=== PATIENT | female | born 1975 | race Caucasian/White ===

== ENCOUNTER 2016-06-18 06:46 | Inpatient (IN) | payer BC ==
[2016-06-18] MEDS ORDERED: Sodium Chloride 0.9% 10 ML Syringe FLUSH PRN (08:13)
[2016-06-18] MEDS ORDERED: Nalbuphine 20 MG/1 ML Amp IVPUSH PRN (08:13)
[2016-06-18] MEDS ORDERED: Lidocaine 1% 50 ML MDV INJECT ONE (08:13)
[2016-06-18] MEDS ORDERED: Ondansetron 4 MG/2 ML SDV IVPUSH PRN (08:15)
[2016-06-18] MEDS ORDERED: ePHEDrine 50 MG/ML SDV IVPUSH PRN (08:15)
[2016-06-18] MEDS ORDERED: Oxytocin/Lactated Ringers 10 UNIT/1,000 ML BAG IV SCH (08:15)
--- NOTE | 2016-06-18 08:18 | PCM.PREANE ---
Preanesthetic Assessment - ANESTHESIA/TRANSFUSION/FAMILY HX Anesthesia/Transfusion History: No Prior Transfusion(s), Prior Anesthesia Type of Anesthesia Reaction: Denies: Allergy, Anesthesia Awareness, Excessive Somnolence, Excessive Nausea/Vomiting, Excessive Itching, Excessive Shivering, Malignant Hyperthermia, Malignant Hyperthermia, Family History, Pseudocholinesterase Deficiency, Pseudocholinesterase Deficiency, Family History of, Urinary Retention, Unknown, Other (see below) Family History of Anesthesia Reaction: No Intubation History: Unknown - REVIEW OF SYSTEMS Constitutional: Reports: no symptoms 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.) Respiratory: Reports: no symptoms (childhood asthma/ has not used inhaler in years.) Cardiovascular: Reports: no symptoms GI: Reports: no symptoms (GERD with ) Other: Reports: sinus problem (sinus surgery as a child.), depression, anxiety - PHYSICAL ASSESSMENT HR: 89 O2 Sat by Pulse Oximetry: 99 RR: 18 BP: 122/83 Temp: 37.2 C Height: 1.65 m Weight: 75.296 kg NPO Status Date: 06/17/16 NPO Status Time: 20:00 ASA Class: 2 Mental Status: alert & oriented x3 Airway Class: Mallampati = 2 Dentition: Reports: normal dentition, caries Thyro-Mental Finger Breadths: 3 Mouth Opening Finger Breadths: 2 ROM/Head Extension: full Respiratory Status: lungs clear to auscultation bilaterally Cardiovascular Status: regular rate & rhythm, normal S1, S2, no murmur, blood pressure WNL - ALLERGIES Allergies/Adverse Reactions: Allergies Allergy/AdvReac Type Severity Reaction Status Date / Time cefprozil [From Cefzil] Allergy Hives Verified 06/18/16 08:20 Penicillins Allergy Hives Verified 06/18/16 08:20 - ANESTHESIA PLAN Preop Beta Ninoska: No Anesthesia Type Planned: epidural - ACKNOWLEDGEMENTS Pt an appropriate candidate for the planned anesthesia: Yes Alternatives and risks of anesthesia discussed w pt/guardian: Yes Pt/Guardian understands and agree with anesthesia plan: Yes
[2016-06-18] MEDS: Lactated Ringers 1,000 ML IV SCH ×5 (08:30→20:41)
--- NOTE | 2016-06-18 08:33 | PCM.LDHP ---
L&D History of Present Illness - General Date of Service: 06/18/16 Admit Problem/Dx: Patient Status Order with Admit Dx/Problem 06/18/16 08:16 Patient Status [ADT] Routine Patient Status: Refer to Observation Admission Diagnosis/Problem: Normal labor Reason for Admit: active labor Nurse Unit Type: Labor and Delivery Admitting Physician: Svitlana Paredes Attending Physician: Svitlana Paredes Admission Diagnosis/Problem Admission Diagnosis/Problem Normal labor Source of Information: Patient History Limitations: Reports: No limitations - History of Present Illness Introduction:: 40 year old at 39w2d here with SROM of clear fluid at 0500. Contractions started at 7am when arrived to hospital. Timing/Duration: Reports: seconds: - Related Data Allergies/Adverse Reactions: Allergies Allergy/AdvReac Type Severity Reaction Status Date / Time cefprozil [From Cefzil] Allergy Hives Verified 06/18/16 08:20 Penicillins Allergy Hives Verified 06/18/16 08:20 H&P Review of Systems - Review of Systems: Review Of Systems: See Below General: Reports: no symptoms HEENT: Reports: no symptoms Pulmonary: Reports: no symptoms Cardiovascular: Reports: no symptoms Gastrointestinal: Reports: No symptoms Genitourinary: Reports: no symptoms Musculoskeletal: Reports: no symptoms Skin: Reports: no symptoms Psychiatric: Reports: no symptoms Neurological: Reports: no symptoms Hematologic/Lymphatic: Reports: no symptoms Immunologic: Reports: no symptoms L&D Exam - Exam Exam: See Below - Vital Signs Vital Signs: Last Vital Signs Temp 37.2 C 06/18/16 08:18 Pulse 89 06/18/16 08:18 Resp 18 06/18/16 08:18 BP 122/83 06/18/16 08:18 Pulse Ox 99 06/18/16 08:18 Weight: 75.296 kg - OB Specific Contraction Intensity: Mild to Moderate Heart Rate (FHR) Variability: Moderate (6-25 bmp) Presentation: Vertex - Edwards Score Edwards Score Cervix Position: Midposition Edwards Score Consistency: Medium Edwards Score Effacement: >80% Edwards Score Dilation: 3-4 cm Edwards Score 's Station: -1 ,0 Edwards Score Total: 9 - Exam General: alert HEENT: Mucosa moist & pink, Nares patent Neck: supple, trachea midline Lungs: Clear to auscultation Abdomen: normal bowel sounds, soft Genitourinary: Normal external exam Back Exam: normal inspection, full range of motion Neurological: cranial nerves intact, reflexes equal bilateral Psychiatric: alert, normal affect, normal mood - Patient Data Lab Results last 24 hrs: Laboratory Results - last 24 hr 06/18/16 Range/Units 07:45 WBC 10.55 H (3.98-10.04) K/mm3 RBC 4.49 (3.98-5.22) M/mm3 Hgb 14.5 (11.2-15.7) gm/L Hct 40.7 (34.1-44.9) % MCV 90.6 (79.4-94.8) fl MCH 32.3 H (25.6-32.2) pg MCHC 35.6 H (32.2-35.5) g/dl RDW Std Deviation 42.7 (36.4-46.3) fL Plt Count 195 (182-369) K/mm3 MPV 9.3 L (9.4-12.3) fl Neut % (Auto) 76.0 H (34.0-71.1) % Lymph % (Auto) 14.1 L (19.3-51.7) % [place] % (Auto) 7.9 (4.7-12.5) % Eos % (Auto) 1.3 (0.7-5.8) Baso % (Auto) 0.2 (0.1-1.2) % Neut # 8.02 H (1.56-6.13) K/mm3 Lymph # 1.49 (1.18-3.74) K/mm3 [place] # 0.83 H (0.24-0.36) K/mm3 Eos # 0.14 (0.04-0.36) K/mm3 Baso # 0.02 (0.01-0.08) K/mm3 Result Diagrams: 06/18/16 07:45 Problem List Initiated/Reviewed/Updated: Yes Orders Last 24hrs: Active Orders 24 hr Category Date Time Status Patient Status [ADT] Routine ADT 06/18/16 08:16 Active Activity as Tolerated [RC] PFP Care 06/18/16 08:15 Active Communication Order [RC] ASDIRECTED Care 06/18/16 08:15 Active Heart Tones [RC] ASDIRECTED Care 06/18/16 08:16 Active Notify Provider [RC] ASDIRECTED Care 06/18/16 08:15 Active Notify Provider [RC] PFP Care 06/18/16 08:15 Active Notify Provider [RC] PRN Care 06/18/16 08:15 Active Oxygen Therapy [RC] ASDIRECTED Care 06/18/16 08:15 Active Peripheral IV Care [RC] . DIRECTED Care 06/18/16 08:16 Active Pulse Oximetry [RC] ASDIRECTED Care 06/18/16 08:15 Active Vital Signs [RC] PER UNIT ROUTINE Care 06/18/16 08:15 Active Clear Liquid Diet [DIET] Diet 06/18/16 Breakfast Active Bupivacaine/fentaNYL/NS [fentaNYL/Bupivacaine/NS 2 MCG- Med 06/18/16 08:15 Active 0.125% 100 ML] 100 ml EPIDUR ASDIRECTED Lactated Ringers [Ringers, Lactated] 1,000 ml Med 06/18/16 08:15 Active IV ASDIRECTED Nalbuphine [Nubain] Med 06/18/16 08:13 Active 10 mg IVPUSH Q2H PRN Ondansetron [Zofran] Med 06/18/16 08:15 Active 4 mg IVPUSH ONETIME PRN Oxytocin/Lactated Ringers [Pitocin in LR 10 Units/1,000 Med 06/18/16 08:15 Active ML] 10 unit in 1,000 ml IV ASDIRECTED Sodium Chloride 0.9% [Saline Flush] Med 06/18/16 08:13 Active 10 ml FLUSH ASDIRECTED PRN ePHEDrine [ePHEDrine Sulfate] Med 06/18/16 08:15 Ordered 5 mg IVPUSH ASDIRECTED PRN fentaNYL [Sublimaze] Med 06/18/16 08:15 Active 100 mcg EPIDUR Q3H PRN Electronic Heart Tones Ext w TOCO [WOMSER] Oth 06/18/16 08:15 Ordered Routine Electronic Heart Tones Internal [WOMSER] Per Unit Oth 06/18/16 08:15 Ordered Routine Peripheral IV Insertion Adult [OM.PC] Routine Oth 06/18/16 08:15 Ordered Resuscitation Status Routine Resus Stat 06/18/16 08:13 Ordered Medication Orders Ephedrine Sulfate (Ephedrine Sulfate) 5 mg IVPUSH ASDIRECTED PRN PRN Reason: Hypotension Fentanyl (Sublimaze) 100 mcg EPIDUR Q3H PRN PRN Reason: Pain Fentanyl/Bupivacaine HCl (Fentanyl/Bupivacaine/Ns 2 Mcg-0.125% 100 Ml) 100 ml EPIDUR ASDIRECTED STEPHANIE Lactated Ringer's (Ringers, Lactated) 1,000 mls @ 100 mls/hr IV ASDIRECTED STEPHANIE Oxytocin/Lactated Ringer's (Pitocin In Lr 10 Units/1,000 Ml) 10 unit in 1,000 mls @ 500 mls/hr IV ASDIRECTED STEPHANIE Nalbuphine HCl (Nubain) 10 mg IVPUSH Q2H PRN PRN Reason: Pain (moderate 4-6) Ondansetron HCl (Zofran) 4 mg IVPUSH ONETIME PRN PRN Reason: Nausea/Vomiting Sodium Chloride (Saline Flush) 10 ml FLUSH ASDIRECTED PRN PRN Reason: Keep Vein Open Assessment/Plan Comment:: Term labor. More uncomfortable. Desires epidural. Anticipate .
[2016-06-18] MEDS: Bupivacaine/fentaNYL/NS 100 ML Bag EPIDUR SCH ×2 (08:40→17:11)
[2016-06-18] MEDS: fentaNYL 100 MCG/2 ML SDV EPIDUR PRN (08:41)
[2016-06-18] MEDS ORDERED: Citric Acid/Sodium Citrate Solution 30 ML Cup ONE (23:38)
[2016-06-18] MEDS ORDERED: Metoclopramide 10 MG/2 ML SDV ONE (23:39)
[2016-06-18] MEDS ORDERED: Bupivacaine 0.5% 30 ML SDV ONE (23:44)
[2016-06-18] MEDS ORDERED: Clindamycin Phosphate 900 MG in Sodium Chloride 0.9% 100 ML IV ONE (23:57)
[2016-06-19] MEDS ORDERED: Gentamicin 40 MG/ML 2 ML Vial ONE (00:02)
[2016-06-19] MEDS ORDERED: Clindamycin Phosphate 900 MG/6 ML AdvVial ONE (00:02)
[2016-06-19] MEDS ORDERED: Sodium Chloride 0.9% 100 ML ONE (00:03)
[2016-06-19] MEDS ORDERED: Citric Acid/Sodium Citrate Solution 30 ML Cup PO ONE (00:08)
[2016-06-19] MEDS ORDERED: Metoclopramide 10 MG/2 ML SDV IVPUSH ONE (00:08)
[2016-06-19] MEDS ORDERED: Sodium Chloride 0.9% 10 ML Syringe FLUSH PRN (00:08)
[2016-06-19] MEDS ORDERED: Lactated Ringers 1,000 ML IV SCH (00:15)
[2016-06-19] MEDS ORDERED: Ondansetron 4 MG/2 ML SDV ONE (00:35)
[2016-06-19] MEDS ORDERED: Oxytocin 10 Units/1 ML SDV ONE (00:35)
[2016-06-19] MEDS ORDERED: Ketorolac 30 MG/ML SDV ONE (00:35)
[2016-06-19] MEDS ORDERED: Lactated Ringers 2,000 ML ONE (00:35)
[2016-06-19] MEDS ORDERED: Lidocaine 2% with EPINEPHrine 1:200,000 20 ML SDV ONE (00:35)
[2016-06-19] MEDS ORDERED: Morphine PF 10 MG/10 ML SDV ONE (00:36)
[2016-06-19] MEDS ORDERED: fentaNYL 100 MCG/2 ML SDV IVPUSH PRN (00:48)
[2016-06-19] MEDS ORDERED: Ondansetron 4 MG/2 ML SDV IVPUSH PRN ×2 (00:48→10:20)
[2016-06-19] MEDS ORDERED: HYDROmorphone 0.5 MG/0.5 ML Syringe IVPUSH PRN (00:48)
[2016-06-19] MEDS ORDERED: diphenhydrAMINE 50 MG/ML SDV IVPUSH PRN ×2 (00:48→02:55)
[2016-06-19] MEDS ORDERED: ePHEDrine 50 MG/ML SDV IVPUSH PRN ×2 (00:48→02:55)
[2016-06-19] MEDS ORDERED: Meperidine PF 50 MG/ML Syringe ONE (00:52)
[2016-06-19] MEDS ORDERED: Bupivacaine 0.25% 10 ML SDV ONE (01:00)
[2016-06-19] MEDS ORDERED: Phenylephrine 1 MG in Sodium Chloride 0.9% 10 ML IV SCH (01:00)
[2016-06-19] MEDS ORDERED: Phenylephrine/Normal Saline 100 MCG/ML 10 ML Syringe ONE (01:09)
--- NOTE | 2016-06-19 01:26 | PCM.POSTAN ---
POST ANESTHESIA ASSESSMENT - MENTAL STATUS Mental Status: alert - VITAL SIGNS Pulse Rate: 114 SaO2: 99 Resp Rate: 16 Blood Pressure: 98/45 Temperature: 36.7 C - RESPIRATORY Respiratory Status: respiratory rate WNL, airway patent, O2 saturation stable - CARDIOVASCULAR CV Status: pulse rate WNL, blood pressure stable - GASTROINTESTINAL GI Status: no symptoms - POST OP HYDRATION Hydration Status: adequate & stable
--- NOTE | 2016-06-19 01:30 | PCM.OPNOTE ---
- General Post-Op/Procedure Note Date of Surgery/Procedure: 06/19/16 Operative Procedure(s): primary section Findings: viable female, 7#4oz, 9/9 APGARS, normal uterus tubes and ovaries. Pre Op Diagnosis: failure to progress Post-Op Diagnosis: Same Anesthesia Technique: Epidural Primary Surgeon: Svitlana Paredes Anesthesia Provider: [employer] Team Member: Deven Moore Fluid Replacement, Intraop: 1,200 Output, Urine Amount: 250 (cranberry colored) EBL in mLs: 1,200 Drain/Tube Comments:: brownlee Complications: None Condition: Good Free Text/Narrative:: The patient was taken to the operating room where epidural anesthesia was dosed to surgical levels without difficulty. The patient was prepped and draped in the usual sterile fashion in the dorsal supine position with a leftward tilt. A Pfannenstiel skin incision was made with the scalpel and carried through to the underlying layer of fascia. The fascia was incised in the midline and extended laterally using Trinh scissors. Jeff clamps were used to elevate the superior aspect of the fascial incision, which was elevated, and the underlying rectus muscles were dissected off bluntly and using Trinh scissors. Attention was then turned to the inferior aspect of the fascial incision, which in similar fashion was grasped with Jeff clamps, elevated, and the underlying rectus muscles were dissected off bluntly and using the trinh. The rectus muscles were dissected in the midline. The peritoneum was identified and entered using Metzenbaum scissors; this incision was extended superiorly and inferiorly with good visualization of the bladder. The bladder blade was inserted. The vesicouterine peritoneum was identified and entered sharply using Metzenbaum scissors. This incision was extended laterally and the bladder flap was created digitally. The bladder blade was reinserted. The lower uterine segment was incised in a transverse fashion using the scalpel and extended using bandage scissors as well as manual traction. Clear fluid was noted. The infant was subsequently delivered by flexing the head to the incision. Body and shoulders followed without difficulty. The cord was clamped and cut. The was subsequently handed to the awaiting airline reservationist whose presence had been requested.. The placenta was delivered spontaneously intact with a three-vessel cord noted. The uterus was exteriorized and cleared of all clots and debris. The uterine incision was repaired in 2 layers using 0 monocryl. Hemostasis was visualized. Hemostasis was visualized bilaterally. The uterus was returned to the abdomen. The uterine incision was reexamined and it was noted to be hemostatic. The pelvis was copiously irrigated. The fascia was closed with 1 PDS suture, and the skin was closed with 3-0 monocryl. Sponge, lap, and instrument counts were correct x2. The patient was stable at the completion of the procedure and was subsequently transferred to the recovery room in stable condition.
[2016-06-19] MEDS ORDERED: Hydrocortisone Acetate 25 MG Supp RECTAL PRN (02:55)
[2016-06-19] MEDS ORDERED: Witch Hazel Medicated Pads 100/Jar TOP PRN (02:55)
[2016-06-19] MEDS ORDERED: Naloxone 0.4 MG/ML SDV IVPUSH PRN (02:55)
[2016-06-19] MEDS ORDERED: Dextrose 5%-Lactated Ringers 1,000 ML IV SCH (02:55)
[2016-06-19] MEDS ORDERED: Lanolin 100% Cream 7 GM Tube TOP PRN (02:55)
[2016-06-19] MEDS ORDERED: Ketorolac 30 MG/ML SDV IVPUSH SCH (03:00)
[2016-06-19] MEDS: fentaNYL 100 MCG/2 ML SDV EPIDUR PRN (04:23)
[2016-06-19] MEDS: Dextrose 5%-0.45% NaCl 1,000 ML IV SCH ×2 (06:59→18:52)
[2016-06-19] MEDS: Ketorolac 30 MG/ML SDV IVPUSH SCH ×3 (07:00→18:51)
--- NOTE | 2016-06-19 08:13 | PCM48HPAN ---
Post Anesthesia Note - EVALUATION WITHIN 48HRS OF ANESTHETIC Vital Signs in Normal Range: Yes Patient Participated in Evaluation: Yes Respiratory Function Stable: Yes Airway Patent: Yes Cardiovascular Function Stable: Yes (slightly hypotensive (100/60), c/o slight orthostatic dizziness ) Hydration Status Stable: Yes Pain Control Satisfactory: Yes Nausea and Vomiting Control Satisfactory: Yes Mental Status Recovered: Yes
[2016-06-19] MEDS ORDERED: Lactated Ringers 500 ML IV ONE (11:17)
[2016-06-19] MEDS ORDERED: Methylergonovine 0.2 MG/1 ML Amp IM STA (11:19)
[2016-06-19] MEDS ORDERED: Ibuprofen 600 MG Tab PO PRN (21:00)
[2016-06-20] MEDS: Dextrose 5%-0.45% NaCl 1,000 ML IV SCH (03:43)
[2016-06-20] MEDS: Acetaminophen/oxyCODONE 325-5 MG Tab PO PRN ×3 (03:44→16:30)
[2016-06-20] MEDS: Ibuprofen 600 MG Tab PO PRN ×2 (08:03→13:59)
[2016-06-20] MEDS ORDERED: Sodium Chloride 0.9% 250 ML ONE (08:53)
[2016-06-20] MEDS ORDERED: Sodium Chloride 0.9% 250 ML IV SCH (09:45)
[2016-06-20] MEDS: Simethicone 80 MG Tab.Chew PO PRN ×2 (09:48→16:30)
[2016-06-21] MEDS: Acetaminophen/oxyCODONE 325-5 MG Tab PO PRN ×3 (03:20→21:07)
--- NOTE | 2016-06-21 06:42 | PCM.PNPP ---
- General Info Date of Service: 06/20/16 Functional Status: Reports: pain controlled, other (dizzy). Denies: ambulating - Review of Systems General: Reports: weakness, fatigue HEENT: Reports: no symptoms Pulmonary: Reports: no symptoms Cardiovascular: Reports: no symptoms Gastrointestinal: Reports: No symptoms Genitourinary: Reports: no symptoms Musculoskeletal: Reports: no symptoms Skin: Reports: no symptoms Neurological: Reports: no symptoms Psychiatric: Reports: no symptoms - General Info Date of Service: 06/20/16 - Patient Data Vital Signs - most recent: Last Vital Signs Temp 36.8 C 06/21/16 03:16 Pulse 71 06/21/16 03:16 Resp 16 06/21/16 03:16 BP 112/61 06/21/16 03:16 Pulse Ox 98 06/21/16 03:16 Weight - most recent: 75.296 kg I&O - last 24 hours: Intake & Output 06/20/16 06/20/16 06/21/16 14:59 22:59 06:59 Intake Total 580 0 Output Total 1400 Balance -820 0 Lab Results - last 24 hrs: Laboratory Results - last 24 hr 06/19/16 06/20/16 06/20/16 Range/Units 12:15 06:38 17:53 WBC 15.01 H 13.23 H (3.98-10.04) K/mm3 RBC 2.42 L 3.12 L (3.98-5.22) M/mm3 Hgb 7.8 L 9.7 L (11.2-15.7) gm/L Hct 23.2 L 28.8 L (34.1-44.9) % MCV 95.9 H 92.3 (79.4-94.8) fl MCH 32.2 31.1 (25.6-32.2) pg MCHC 33.6 33.7 (32.2-35.5) g/dl RDW Std Deviation 44.0 47.9 H (36.4-46.3) fL Plt Count 186 184 (182-369) K/mm3 MPV 8.9 L 8.9 L (9.4-12.3) fl Neut % (Auto) 80.8 H 78.5 H (34.0-71.1) % Lymph % (Auto) 8.7 L 10.8 L (19.3-51.7) % [place] % (Auto) 8.3 8.2 (4.7-12.5) % Eos % (Auto) 1.8 2.1 (0.7-5.8) Baso % (Auto) 0.1 0.1 (0.1-1.2) % Neut # 12.14 H 10.39 H (1.56-6.13) K/mm3 Lymph # 1.30 1.43 (1.18-3.74) K/mm3 [place] # 1.24 H 1.08 H (0.24-0.36) K/mm3 Eos # 0.27 0.28 (0.04-0.36) K/mm3 Baso # 0.01 0.01 (0.01-0.08) K/mm3 Manual Slide Review Abnormal smear Blood Type O POSITIVE Gel Antibody Screen Negative Crossmatch See Detail Med Orders - Current: Current Medications Diphenhydramine HCl (Benadryl) 25 mg IVPUSH Q6H PRN PRN Reason: Itching or Nausea Emollient Ointment (Lansinoh Hpa) 0 gm TOP ASDIRECTED PRN PRN Reason: Sore Nipples Ephedrine Sulfate (Ephedrine Sulfate) 5 mg IVPUSH SEECOMMENT PRN PRN Reason: Other Last Admin: 06/19/16 03:14 Dose: 5 mg Hydrocortisone Acetate (Anucort-Hc) 25 mg RECTAL BID PRN PRN Reason: Hemorrhoids Dextrose/Sodium Chloride (Dextrose 5%-1/2 Ns) 1,000 mls @ 125 mls/hr IV ASDIRECTED STEPHANIE Last Admin: 06/20/16 03:43 Dose: 125 mls/hr Sodium Chloride (Normal Saline) 250 mls @ 100 mls/hr IV ASDIRECTED STEPHANIE Last Admin: 06/20/16 09:12 Dose: 100 mls/hr Ibuprofen (Motrin) 600 mg PO Q6H PRN PRN Reason: mild pain or fever Last Admin: 06/20/16 13:59 Dose: 600 mg Naloxone HCl (Narcan) 0.1 mg IVPUSH SEECOMMENT PRN PRN Reason: Respiratory Depression Ondansetron HCl (Zofran) 4 mg IVPUSH Q8H PRN PRN Reason: Nausea Last Admin: 06/19/16 10:38 Dose: 4 mg Oxycodone/Acetaminophen (Percocet 325-5 Mg) 2 tab PO Q6H PRN PRN Reason: Pain (moderate 4-6) Last Admin: 06/21/16 03:20 Dose: 2 tab Simethicone (Simethicone) 80 mg PO Q4H PRN PRN Reason: Gas Last Admin: 06/20/16 16:30 Dose: 80 mg Witch Judy (Tucks) 1 pad TOP ASDIRECTED PRN PRN Reason: Perineal Comfort Measure Discontinued Medications Bupivacaine HCl (Marcaine 0.5%) Confirm Administered Dose 30 ml .ROUTE .STK-MED ONE Stop: 06/18/16 23:45 Last Admin: 06/19/16 00:39 Dose: 20 ml Bupivacaine HCl (Sensorcaine-Mpf 0.25%) 10 ml .ROUTE .STK-MED ONE Stop: 06/19/16 01:01 Citric Acid/Sodium Citrate (Bicitra Solution) Confirm Administered Dose 30 ml .ROUTE .STK-MED ONE Stop: 06/18/16 23:39 Last Admin: 06/19/16 05:59 Dose: Not Given Citric Acid/Sodium Citrate (Bicitra Solution) 30 ml PO ONETIME ONE Stop: 06/19/16 00:09 Last Admin: 06/18/16 23:45 Dose: 30 ml Clindamycin Phosphate (Cleocin) Confirm Administered Dose 900 mg .ROUTE .STK- MED ONE Stop: 06/19/16 00:03 Last Admin: 06/19/16 05:59 Dose: Not Given Diphenhydramine HCl (Benadryl) 25 mg IVPUSH Q6H PRN PRN Reason: pruritis Ephedrine Sulfate (Ephedrine Sulfate) 5 mg IVPUSH ASDIRECTED PRN PRN Reason: Hypotension Ephedrine Sulfate (Ephedrine Sulfate) 5 mg IVPUSH ASDIRECTED PRN PRN Reason: Hypotension Fentanyl (Sublimaze) 100 mcg EPIDUR Q3H PRN PRN Reason: Pain Last Admin: 06/19/16 04:23 Dose: 100 mcg Fentanyl (Sublimaze) 50 mcg IVPUSH Q5M PRN PRN Reason: Pain Stop: 06/19/16 01:04 Fentanyl/Bupivacaine HCl (Fentanyl/Bupivacaine/Ns 2 Mcg-0.125% 100 Ml) 100 ml EPIDUR ASDIRECTED [facility] Last Admin: 06/18/16 17:11 Dose: 100 ml Gentamicin Sulfate (Gentamicin) Confirm Administered Dose 400 mg .ROUTE .[facility] ONE Stop: 06/19/16 00:03 Last Admin: 06/19/16 05:59 Dose: Not Given Hydromorphone HCl (Dilaudid) 0.5 mg IVPUSH Q15M PRN PRN Reason: severe pain Stop: 06/19/16 01:04 Lactated Ringer's (Ringers, Lactated) 1,000 mls @ 100 mls/hr IV ASDIRECTED [facility] Last Admin: 06/18/16 20:41 Dose: 125 mls/hr Oxytocin/Lactated Ringer's (Pitocin In Lr 10 Units/1,000 Ml) 10 unit in 1,000 mls @ 500 mls/hr IV ASDIRECTED [facility] Clindamycin Phosphate 900 mg/ (Sodium Chloride) 106 mls @ 100 mls/hr IV ONETIME ONE Stop: 06/19/16 01:00 Last Admin: 06/19/16 00:10 Dose: 100 mls/hr Sodium Chloride (Normal Saline) Confirm Administered Dose 100 mls @ as directed .ROUTE .[facility] ONE Stop: 06/19/16 00:04 Last Admin: 06/19/16 06:00 Dose: Not Given Gentamicin Sulfate 320 mg/ (Sodium Chloride) 108 mls @ 216 mls/hr IV ONETIME ONE Stop: 06/19/16 00:44 Last Admin: 06/19/16 00:15 Dose: 216 mls/hr Lactated Ringer's (Ringers, Lactated) 1,000 mls @ 125 mls/hr IV ASDIRECTED [facility] Lactated Ringer's (Ringers, Lactated) Confirm Administered Dose 2,000 mls @ as directed .ROUTE .[facility] ONE Stop: 06/19/16 00:36 Phenylephrine HCl 1 mg/ Sodium (Chloride) 10.1 mls @ 1 mls/sec IV TITRATE [facility] Dextrose/Lactated Ringer's (Dextrose 5%-Lactated Ringers) 1,000 mls @ 125 mls/ hr IV ASDIRECTED [facility] Stop: 06/19/16 10:54 Last Admin: 06/19/16 03:12 Dose: 125 mls/hr Lactated Ringer's (Ringers, Lactated) 500 mls @ 50 mls/hr IV .[facility] ONE Stop: 06/19/16 21:16 Last Admin: 06/19/16 11:42 Dose: 500 mls/hr Sodium Chloride (Normal Saline) Confirm Administered Dose 250 mls @ as directed .ROUTE .STK-MED ONE Stop: 06/20/16 08:54 Last Admin: 06/20/16 10:50 Dose: Not Given Ibuprofen (Motrin) 600 mg PO Q6H PRN PRN Reason: mild pain or fever Ketorolac Tromethamine (Toradol) 30 mg IVPUSH Q6H STEPHANIE Stop: 06/19/16 15:01 Last Admin: 06/19/16 06:00 Dose: Not Given Ketorolac Tromethamine (Toradol) 30 mg IVPUSH Q6H STEPHANIE Stop: 06/19/16 19:01 Last Admin: 06/19/16 18:51 Dose: 30 mg Lidocaine HCl (Xylocaine 1%) 20 ml INJECT ONETIME ONE Stop: 06/18/16 08:14 Last Admin: 06/19/16 05:58 Dose: Not Given Lidocaine/Epinephrine (Xylocaine-Mpf 2%-Epi 1:200,000) Confirm Administered Dose 20 ml .ROUTE .STK-MED ONE Stop: 06/19/16 00:36 Meperidine HCl (Demerol) Confirm Administered Dose 50 mg .ROUTE .STK-MED ONE Stop: 06/19/16 00:53 Methylergonovine Maleate (Methergine) 0.2 mg IM NOW STA Stop: 06/19/16 11:20 Last Admin: 06/19/16 11:40 Dose: 0.2 mg Metoclopramide HCl (Reglan) Confirm Administered Dose 10 mg .ROUTE .STK-MED ONE Stop: 06/18/16 23:40 Last Admin: 06/19/16 05:59 Dose: Not Given Metoclopramide HCl (Reglan) 10 mg IVPUSH ONETIME ONE Stop: 06/19/16 00:09 Last Admin: 06/19/16 04:24 Dose: 10 mg Morphine Sulfate (Duramorph Pf) Confirm Administered Dose 10 mg .ROUTE .STK-MED ONE Stop: 06/19/16 00:37 Nalbuphine HCl (Nubain) 10 mg IVPUSH Q2H PRN PRN Reason: Pain (moderate 4-6) Ondansetron HCl (Zofran) 4 mg IVPUSH ONETIME PRN PRN Reason: Nausea/Vomiting Ondansetron HCl (Zofran) Confirm Administered Dose 4 mg .ROUTE .STK-MED ONE Stop: 06/19/16 00:36 Ondansetron HCl (Zofran) 4 mg IVPUSH ONETIME PRN PRN Reason: Nausea/Vomiting Oxytocin (Pitocin) Confirm Administered Dose 20 unit .ROUTE .STK-MED ONE Stop: 06/19/16 00:36 Phenylephrine HCl (Phenylephrine In Ns 100 Mcg/Ml) Confirm Administered Dose 1 mg .ROUTE .STK-MED ONE Stop: 06/19/16 01:10 Sodium Chloride (Saline Flush) 10 ml FLUSH ASDIRECTED PRN PRN Reason: Keep Vein Open Sodium Chloride (Saline Flush) 10 ml FLUSH ASDIRECTED PRN PRN Reason: Keep Vein Open - Interaction Disposition, : in Room with Family Feeding: Breastfed Infant; Nursed Well Support Person: - Recovery Exam Fundal Tone: Firm Fundal Level: At Umbilicus Fundal Placement: Midline Lochia Amount: Small Lochia Color: Rubra/Red Perineum Description: Intact, Minimal Bruising/Swelling Episiotomy/Laceration: None Bladder Status: Voiding Urinary Elimination: Indwelling Catheter - Exam General: alert, oriented HEENT: Pupils equal Neck: supple Lungs: Clear to auscultation, Normal respiratory effort Cardiovascular: regular rate, regular rhythm Abdomen: bowel sounds present, soft, no tenderness, no distension Extremities: no edema Skin: warm, dry, intact Wound/Incisions: healing well Neurological: no new focal deficit Psy/Mental Status: alert, normal affect, normal mood - Problem List Review Problem List Initiated/Reviewed/Updated: Yes - My Orders Last 24 Hours: My Active Orders 06/20/16 07:40 Transfuse Red Blood Cells [COMM] Urgent 06/20/16 09:39 Simethicone 80 mg PO Q4H PRN 06/20/16 09:45 Sodium Chloride 0.9% [Normal Saline] 250 ml IV ASDIRECTED - Plan Plan:: PPD1 -significant anemia- suspect from acute blood loss with surgery and initial hemorrhage. Hgb down to 7.2. Will transfuse this am.
[2016-06-21] MEDS: Ibuprofen 600 MG Tab PO PRN ×2 (08:47→17:17)
[2016-06-22] MEDS ORDERED: Magnesium Hydroxide 400 MG/5 ML Susp 30 ML Cup PO ONE (04:14)
[2016-06-22] MEDS: Ibuprofen 600 MG Tab PO PRN (04:26)
[2016-06-22 04:58] VITALS: BP 107/69
--- NOTE | 2016-06-22 06:43 | PCM.DCSUM1 ---
Discharge Summary - Hospital Course Brief History: Admitted in labor with SROM. Progressed to complete. Failure to descend. 1LTCS. hemorrhage. 2u PRBC. - Discharge Data Discharge Date: 06/22/16 Discharge Disposition: Home, Self-Care 01 Condition: Good - Patient Summary/Data Operative Procedure(s) Performed: primary section - Patient Instructions Diet: Heart Healthy Diet Diet, Other: high protein, high iron Activity: No Strenuous Activities Activity, Other: pelvic rest Driving: Do Not Drive Showering/Bathing: May Shower Notify Provider of: Fever, Increased Pain, Swelling and Redness, Drainage, Nausea and/or Vomiting - Discharge Plan Home Medications: Home Meds Biotin 1 mg PO DAILY 06/18/16 [History] Cholecalciferol (Vitamin D3) [Vitamin D3] 1,000 unit PO DAILY 06/18/16 [History] Fish Oil/Galliano-3 Fatty Acids [Fish Oil] 4 each PO DAILY 06/18/16 [History] Gluc Jiménez Dipo Ch/Yovany Jiménez/C/Artie [Glucosamine Chondroitin Caplet] 1 each PO DAILY 06/18/16 [History] Pnv No.122/Iron/Folic Acid [ Multi Tablet] 1 each PO DAILY 06/18/16 [ History] - Discharge Summary/Plan Comment DC Time >30 min.: No - General Info Date of Service: 06/22/16 Functional Status: Reports: pain controlled - Review of Systems General: Reports: no symptoms HEENT: Reports: no symptoms Pulmonary: Reports: no symptoms Cardiovascular: Reports: no symptoms Gastrointestinal: Reports: No symptoms Genitourinary: Reports: no symptoms Musculoskeletal: Reports: no symptoms Skin: Reports: no symptoms Neurological: Reports: no symptoms Psychiatric: Reports: no symptoms - Patient Data Vitals - Most Recent: Last Vital Signs Temp 36.8 C 06/22/16 04:28 Pulse 64 06/22/16 04:28 Resp 16 06/21/16 11:44 BP 107/69 06/22/16 04:28 Pulse Ox 98 06/22/16 04:28 Weight - Most Recent: 75.296 kg I&O - Last 24 hours: Intake & Output 06/21/16 06/21/16 06/22/16 14:59 22:59 06:59 Intake Total 240 Balance 240 Med Orders - Current: Current Medications Diphenhydramine HCl (Benadryl) 25 mg IVPUSH Q6H PRN PRN Reason: Itching or Nausea Emollient Ointment (Lansinoh Hpa) 0 gm TOP ASDIRECTED PRN PRN Reason: Sore Nipples Ephedrine Sulfate (Ephedrine Sulfate) 5 mg IVPUSH SEECOMMENT PRN PRN Reason: Other Last Admin: 06/19/16 03:14 Dose: 5 mg Hydrocortisone Acetate (Anucort-Hc) 25 mg RECTAL BID PRN PRN Reason: Hemorrhoids Dextrose/Sodium Chloride (Dextrose 5%-1/2 Ns) 1,000 mls @ 125 mls/hr IV ASDIRECTED [facility] Last Admin: 06/20/16 03:43 Dose: 125 mls/hr Sodium Chloride (Normal Saline) 250 mls @ 100 mls/hr IV ASDIRECTED [facility] Last Admin: 06/20/16 09:12 Dose: 100 mls/hr Ibuprofen (Motrin) 600 mg PO Q6H PRN PRN Reason: mild pain or fever Last Admin: 06/22/16 04:26 Dose: 600 mg Naloxone HCl (Narcan) 0.1 mg IVPUSH SEECOMMENT PRN PRN Reason: Respiratory Depression Ondansetron HCl (Zofran) 4 mg IVPUSH Q8H PRN PRN Reason: Nausea Last Admin: 06/19/16 10:38 Dose: 4 mg Oxycodone/Acetaminophen (Percocet 325-5 Mg) 2 tab PO Q6H PRN PRN Reason: Pain (moderate 4-6) Last Admin: 06/21/16 21:07 Dose: 2 tab Simethicone (Simethicone) 80 mg PO Q4H PRN PRN Reason: Gas Last Admin: 06/20/16 16:30 Dose: 80 mg Witch Judy (Tucks) 1 pad TOP ASDIRECTED PRN PRN Reason: Perineal Comfort Measure Discontinued Medications Bupivacaine HCl (Marcaine 0.5%) Confirm Administered Dose 30 ml .ROUTE .STK-MED ONE Stop: 06/18/16 23:45 Last Admin: 06/19/16 00:39 Dose: 20 ml Bupivacaine HCl (Sensorcaine-Mpf 0.25%) 10 ml .ROUTE .STK-MED ONE Stop: 06/19/16 01:01 Citric Acid/Sodium Citrate (Bicitra Solution) Confirm Administered Dose 30 ml .ROUTE .[facility] ONE Stop: 06/18/16 23:39 Last Admin: 06/19/16 05:59 Dose: Not Given Citric Acid/Sodium Citrate (Bicitra Solution) 30 ml PO ONETIME ONE Stop: 06/19/16 00:09 Last Admin: 06/18/16 23:45 Dose: 30 ml Clindamycin Phosphate (Cleocin) Confirm Administered Dose 900 mg .ROUTE .[facility] ONE Stop: 06/19/16 00:03 Last Admin: 06/19/16 05:59 Dose: Not Given Diphenhydramine HCl (Benadryl) 25 mg IVPUSH Q6H PRN PRN Reason: pruritis Ephedrine Sulfate (Ephedrine Sulfate) 5 mg IVPUSH ASDIRECTED PRN PRN Reason: Hypotension Ephedrine Sulfate (Ephedrine Sulfate) 5 mg IVPUSH ASDIRECTED PRN PRN Reason: Hypotension Fentanyl (Sublimaze) 100 mcg EPIDUR Q3H PRN PRN Reason: Pain Last Admin: 06/19/16 04:23 Dose: 100 mcg Fentanyl (Sublimaze) 50 mcg IVPUSH Q5M PRN PRN Reason: Pain Stop: 06/19/16 01:04 Fentanyl/Bupivacaine HCl (Fentanyl/Bupivacaine/Ns 2 Mcg-0.125% 100 Ml) 100 ml EPIDUR ASDIRECTED [facility] Last Admin: 06/18/16 17:11 Dose: 100 ml Gentamicin Sulfate (Gentamicin) Confirm Administered Dose 400 mg .ROUTE .[facility] ONE Stop: 06/19/16 00:03 Last Admin: 06/19/16 05:59 Dose: Not Given Hydromorphone HCl (Dilaudid) 0.5 mg IVPUSH Q15M PRN PRN Reason: severe pain Stop: 06/19/16 01:04 Lactated Ringer's (Ringers, Lactated) 1,000 mls @ 100 mls/hr IV ASDIRECTED [facility] Last Admin: 06/18/16 20:41 Dose: 125 mls/hr Oxytocin/Lactated Ringer's (Pitocin In Lr 10 Units/1,000 Ml) 10 unit in 1,000 mls @ 500 mls/hr IV ASDIRECTED [facility] Clindamycin Phosphate 900 mg/ (Sodium Chloride) 106 mls @ 100 mls/hr IV ONETIME ONE Stop: 06/19/16 01:00 Last Admin: 06/19/16 00:10 Dose: 100 mls/hr Sodium Chloride (Normal Saline) Confirm Administered Dose 100 mls @ as directed .ROUTE .[facility] ONE Stop: 06/19/16 00:04 Last Admin: 06/19/16 06:00 Dose: Not Given Gentamicin Sulfate 320 mg/ (Sodium Chloride) 108 mls @ 216 mls/hr IV ONETIME ONE Stop: 06/19/16 00:44 Last Admin: 06/19/16 00:15 Dose: 216 mls/hr Lactated Ringer's (Ringers, Lactated) 1,000 mls @ 125 mls/hr IV ASDIRECTED [facility] Lactated Ringer's (Ringers, Lactated) Confirm Administered Dose 2,000 mls @ as directed .ROUTE .[facility] ONE Stop: 06/19/16 00:36 Phenylephrine HCl 1 mg/ Sodium (Chloride) 10.1 mls @ 1 mls/sec IV TITRATE [facility] Dextrose/Lactated Ringer's (Dextrose 5%-Lactated Ringers) 1,000 mls @ 125 mls/ hr IV ASDIRECTED [facility] Stop: 06/19/16 10:54 Last Admin: 06/19/16 03:12 Dose: 125 mls/hr Lactated Ringer's (Ringers, Lactated) 500 mls @ 50 mls/hr IV .[facility] ONE Stop: 06/19/16 21:16 Last Admin: 06/19/16 11:42 Dose: 500 mls/hr Sodium Chloride (Normal Saline) Confirm Administered Dose 250 mls @ as directed .ROUTE .[facility] Stop: 06/20/16 08:54 Last Admin: 06/20/16 10:50 Dose: Not Given Ibuprofen (Motrin) 600 mg PO Q6H PRN PRN Reason: mild pain or fever Ketorolac Tromethamine (Toradol) 30 mg IVPUSH Q6H [facility] Stop: 06/19/16 15:01 Last Admin: 06/19/16 06:00 Dose: Not Given Ketorolac Tromethamine (Toradol) 30 mg IVPUSH Q6H [facility] Stop: 06/19/16 19:01 Last Admin: 06/19/16 18:51 Dose: 30 mg Lidocaine HCl (Xylocaine 1%) 20 ml INJECT ONETIME ONE Stop: 06/18/16 08:14 Last Admin: 06/19/16 05:58 Dose: Not Given Lidocaine/Epinephrine (Xylocaine-Mpf 2%-Epi 1:200,000) Confirm Administered Dose 20 ml .ROUTE .STK-MED ONE Stop: 06/19/16 00:36 Magnesium Hydroxide (Milk Of Magnesia) 30 ml PO ONETIME ONE Stop: 06/22/16 04:15 Last Admin: 06/22/16 04:25 Dose: 30 ml Meperidine HCl (Demerol) Confirm Administered Dose 50 mg .ROUTE .STK-MED ONE Stop: 06/19/16 00:53 Methylergonovine Maleate (Methergine) 0.2 mg IM NOW STA Stop: 06/19/16 11:20 Last Admin: 06/19/16 11:40 Dose: 0.2 mg Metoclopramide HCl (Reglan) Confirm Administered Dose 10 mg .ROUTE .STK-MED ONE Stop: 06/18/16 23:40 Last Admin: 06/19/16 05:59 Dose: Not Given Metoclopramide HCl (Reglan) 10 mg IVPUSH ONETIME ONE Stop: 06/19/16 00:09 Last Admin: 06/19/16 04:24 Dose: 10 mg Morphine Sulfate (Duramorph Pf) Confirm Administered Dose 10 mg .ROUTE .STK-MED ONE Stop: 06/19/16 00:37 Nalbuphine HCl (Nubain) 10 mg IVPUSH Q2H PRN PRN Reason: Pain (moderate 4-6) Ondansetron HCl (Zofran) 4 mg IVPUSH ONETIME PRN PRN Reason: Nausea/Vomiting Ondansetron HCl (Zofran) Confirm Administered Dose 4 mg .ROUTE .STK-MED ONE Stop: 06/19/16 00:36 Ondansetron HCl (Zofran) 4 mg IVPUSH ONETIME PRN PRN Reason: Nausea/Vomiting Oxytocin (Pitocin) Confirm Administered Dose 20 unit .ROUTE .STK-MED ONE Stop: 06/19/16 00:36 Phenylephrine HCl (Phenylephrine In Ns 100 Mcg/Ml) Confirm Administered Dose 1 mg .ROUTE .STK-MED ONE Stop: 06/19/16 01:10 Sodium Chloride (Saline Flush) 10 ml FLUSH ASDIRECTED PRN PRN Reason: Keep Vein Open Sodium Chloride (Saline Flush) 10 ml FLUSH ASDIRECTED PRN PRN Reason: Keep Vein Open - Exam General: Reports: alert, oriented HEENT: Reports: Pupils equal, Pupils reactive, EOMI, Mucous membr. moist/pink Neck: Reports: supple Lungs: Reports: Clear to auscultation, Normal respiratory effort Cardiovascular: Reports: regular rate, regular rhythm Abdomen: Reports: bowel sounds present, soft, no tenderness, no distension (Female) Exam: Normal external exam, Normal speculum exam, Normal bimanual exam Rectal (Female) Exam: Normal Exam, Normal rectal tone Back Exam: Reports: normal inspection, full range of motion Extremities: Reports: no edema, normal pulses Skin: Reports: warm, dry, intact Wound/Incisions: Reports: healing well Neurological: Reports: no new focal deficit Psy/Mental Status: Reports: alert, normal affect, normal mood *Q Meaningful Use (DIS) - VTE *Q VTE Criteria *Q: - Stroke *Q Stroke Criteria *Q: - AMI *Q AMI Criteria *Q:
== END 2016-06-22 10:35 | disposition home or self-care (01) | DRG 540 ==
LOC: JD.OBCHECK 06:46 → JD.OB 06:47 → JD.OBCHECK 08:16 → OBSVTOIN 06-19 00:44 → JD.OB 06-19 00:44
PROVIDERS: ADMIT Obstetrics & Gynecology; ATTEND Obstetrics & Gynecology
PROC: 10D00Z1 Extraction of Products of Conception, Low, Open Approach (ICD-10-PCS; principal; 2016-06-19)
PROC: 00HU33Z Insertion of Infusion Device into Spinal Canal, Percutaneous Approach (ICD-10-PCS; 2016-06-19)
PROC: 3E0R3CZ (ICD-10-PCS; 2016-06-19)
PROC: 30233N1 Transfusion of Nonautologous Red Blood Cells into Peripheral Vein, Percutaneous Approach (ICD-10-PCS; 2016-06-19)
DX: O42.92 Full-term premature rupture of membranes, unspecified as to length of time between rupture and onset of labor (principal); O32.4XX0 Maternal care for high head at term, not applicable or unspecified; Z3A.39 39 weeks gestation of pregnancy; Z37.0 Single live birth; O67.9 Intrapartum hemorrhage, unspecified; D50.0 Iron deficiency anemia secondary to blood loss (chronic); Z88.0 Allergy status to penicillin; Z88.8 Allergy status to other drugs, medicaments and biological substances
CPT/HCPCS: 01967; 01968; 36415; 36430; 85025; 86850; 86900; 86901; 86922; 94762; A9270-GY; J1580; J1885; J2175; J2210; J2270; J2405; J2590; J2765; J3010; J7030; J7042; J7050; J7120; P9016